=== PATIENT | female | born 1965 | race Caucasian/White ===

== ENCOUNTER 2016-11-20 07:04 | Outpatient (CLI) | payer OTHER ==
[2016-11-20 07:54] LABS: #Basophils 0.1 thou/uL (0.0-0.2); #Eosinphils 0.2 thou/uL (0.0-0.7); #Lymphocytes 1.9 thou/uL (1.20-3.40); #Monocytes 0.5 thou/uL (0.11-0.59); #Neutrophils 2.8 thou/uL (1.40-6.50); %Basophils 1.3 % (0.0-1.0); %Monocytes 8.3 % (0.0-10.0); %Neutrophils 51.4 % (42.0-75.0); Hemoglobin 14.1 g/dL (12.0-16.0); Mean Corpuscular Volume 90.5 fl (81.0-99.0); Mean Platelet Volume 6.7 fL (7.4-10.4); Platelet Count 296 thou/uL (130-400); RBC Distribution Width 13.5 % (11.5-14.5); Red Blood Cell (RBC) Count 4.85 mill/uL (4.20-5.40); White Blood Cell (WBC) Count 5.4 thou/uL (4.8-10.8)
[2016-11-20 08:30] LABS: ALT (SGPT) 19 U/L (8-55); AST (SGOT) 20 U/L (5-34); Albumin 4.3 g/dL (3.5-5.0); Alkaline Phosphatase 39 U/L (40-150); Anion Gap 18 mmol/L (10-20); BUN (Urea Nitrogen) 13 mg/dL (9.8-20.1); Bilirubin, Total 0.7 mg/dL (0.2-1.2); Calc. Creatinine Clearance 0 mL/min (70-130); Calcium 10.4 mg/dL (7.8-10.44); Carbon Dioxide 25 mmol/L (22-29); Cardiac Risk 4.3 (Less than 4.5); Chloride 102 mmol/L (98-107); Cholesterol 234 mg/dl (< 200 Desired); Estimated GFR-MDRD 85; Globulin 2.4 g/dL (2.4-3.5); Glucose 88 mg/dL (70-105); HDL Cholesterol 54 mg/dL (>60 Neg Risk); LDL Cholesterol, Calculated 168 mg/dL; Potassium 5.3 mmol/L (3.5-5.1); Protein, Total 6.7 g/dL (6.0-8.3); Sodium 140 mmol/L (136-145); Triglycerides 62 mg/dL (Less than 150)
[2016-11-20 08:51] LABS: Thyroid Stimulating Hormone 1.5791 uIU/mL (0.35-4.94); Vitamin D, 25 Hydroxy 37.5 ng/ml (> 30.0)
== END 2016-11-20 07:05 | disposition home or self-care (01) ==
LOC: NAV LAB 07:04
PROVIDERS: ATTEND Family Medicine
DX: Z00.00 Encounter for general adult medical examination without abnormal findings (principal)
CPT/HCPCS: 36415; 80053; 80061; 82306; 84443; 85025